=== PATIENT | female | born 1965 | race African-American/Black ===

== ENCOUNTER 2023-07-05 15:23 | Outpatient (REF) | payer OTHER, SELFPAY ==
[2023-07-05 17:18] LABS: MANUAL DIFF FLAG NO
[2023-07-05 17:19] LABS: Basophils Percent Auto 0.7 % (0-2); Eosinophils Absolute Auto 0.1 X10*3/uL (0.0-0.4); Eosinophils Percent Auto 1.6 % (0-4); Hemoglobin 12.8 g/dl (12.0-16.0); Imm Gran Abs Auto 0.01 X10*3/uL (0.00-0.03); Imm Gran Pct Auto 0.2 % (0.0-0.4); Lymphocytes Absolute Auto 2.6 X10*3/uL (1.2-4.9); Lymphocytes Percent Auto 45.6 % (20-40); Mean Corpuscular Hemoglobin 29.3 pg (27.0-33.0); Mean Corpuscular Volume 91.5 fL (80.0-98.0); Mean Platelet Volume 10.1 fL (9.4-12.3); Monocytes Absolute Auto 0.5 X10*3/uL (0.1-1.2); Monocytes Percent Auto 9.2 % (2-11); Neutrophils Absolute Auto 2.5 x10*3/uL (2.0-8.3); Neutrophils Percent Auto 42.7 % (45-73); Platelet Count 365 X10*3/uL (160-400); Red Blood Count 4.37 X10*6/uL (4.20-5.50); Red Cell Distribution Width 13.9 % (11.0-16.0); White Blood Count 5.8 X10*3/uL (4.8-10.8)
[2023-07-05 17:38] LABS: Alanine Aminotransferase 13 U/L (0-31); Albumin Level 3.9 g/dL (3.5-5.0); Alkaline Phosphatase 92 U/L (39-117); Anion Gap 11 (12-20); Aspartate Amino Transferase 15 U/L (5-31); Bilirubin Total 0.3 mg/dL (0.0-1.0); Blood Urea Nitrogen 12 mg/dL (9-16); Calcium 9.8 mg/dL (8.4-10.2); Carbon Dioxide 27 mmol/L (22-29); Chloride 105 mmol/L (96-108); Estimated Glomerular Filt Rate > 60; Glucose Random 92 mg/dL (60-115); Potassium 3.8 mmol/L (3.3-5.1); Sodium 139 mmol/L (135-145); Total Protein 7.9 g/dL (6.5-8.0)
[2023-07-05 17:46] LABS: Creatinine Urine 223.98 mg/dL; Microalbum/Creatinine Ratio Ur 12.5 ug/mg cr (<30)
[2023-07-05 17:55] LABS: TSH reflex Free T4 0.81 uIU/mL (0.32-4.0); Vitamin D 25-OH Total 34.1 ng/mL (>30)
[2023-07-06 08:25] LABS: HIV AB/AG Nonreactive (Nonreactive); HIV Num 1 0.05 S/CO (0.00-0.99); ~HepC Num1 0.11 S/CO (0.00-0.79); ~Hepatitis C Antibody Nonreactive (Nonreactive)
== END 2023-07-05 15:24 | disposition home or self-care (01) ==
LOC: HO.CHCLDS 15:23
PROVIDERS: Visit Provider Family Medicine
DX: Z11.4 Encounter for screening for human immunodeficiency virus [HIV] (principal); I10 Essential (primary) hypertension; E55.9 Vitamin D deficiency, unspecified
CPT/HCPCS: 36415; 80053; 82043; 82306; 82570; 84443; 85025; 86803; 87389

== ENCOUNTER 2023-11-01 14:36 | Outpatient (REF) | payer MEDICARE, SELFPAY ==
[2023-11-02 08:06] LABS: Syphilis Screen Reactive (Nonreactive)
[2023-11-07 12:18] LABS: RPR Quantitative Reactive 1:64 (Nonreactive); T.Pallidum Particle Agg Test Reactive (Nonreactive)
== END 2023-11-01 14:37 | disposition home or self-care (01) ==
LOC: HO.CHCLDS 14:36
PROVIDERS: Visit Provider Family Medicine
DX: R21 Rash and other nonspecific skin eruption (principal)
CPT/HCPCS: 36415; 86592; 86780

== ENCOUNTER 2024-01-17 10:35 | Outpatient (REF) | payer MEDICARE, MEDICAID, SELFPAY | END 2024-01-17 10:36 | disposition home or self-care (01) | LOC: HO.HOSX 10:35 | PROVIDERS: Visit Provider Orthopaedic Surgery | DX: Z13.89 Encounter for screening for other disorder (principal) ==

== ENCOUNTER 2024-02-10 09:08 | Outpatient (REF) | payer MEDICARE, MEDICAID, SELFPAY | END 2024-02-10 09:09 | disposition home or self-care (01) | LOC: HO.HOSX 09:08 | PROVIDERS: Visit Provider Orthopaedic Surgery | DX: Z13.89 Encounter for screening for other disorder (principal) ==

== ENCOUNTER 2024-08-10 15:07 | Outpatient (REF) | payer MEDICARE, MEDICAID, SELFPAY ==
[2024-08-12 13:38] LABS: RPR Rapid Plasma Reagin REACTIVE (NON-REACTIVE)
== END 2024-08-10 15:08 | disposition home or self-care (01) ==
LOC: HO.CHCLDS 15:07
PROVIDERS: Visit Provider Family Medicine
DX: A53.0 Latent syphilis, unspecified as early or late (principal)
CPT/HCPCS: 36415; 86592; 86593

== ENCOUNTER 2025-02-22 09:39 | Outpatient (REF) | payer MEDICARE, MEDICAID, SELFPAY ==
--- OUTSIDE RECORDS SUMMARY | 2025-02-22 09:52 | XMS_ITS | Encounter Summary ---
Author Organization [employer] Address [address] [place] [address] Care Team Providers Care Roasterman Name Role Phone Romelia Salinas MD Primary Care Provider [phone] Reason for Visit * Reason Comments Med Refill Encounter Details Date Type Department Care Team ([facility] Contact Info) Description 04/20/2023 Refill [facility] [address] [place] [address] Romelia Salinas MD [address] [place] [address] Primary hypertension; Mood disorder (CMS/HCC) Social History Tobacco Use Types Packs/Day Years Used Date Smoking Tobacco: Never Assessed Comments Unknown Sex and Gender Information Value Date Recorded Sex Assigned at Female 05/31/2022 10:40 AM EDT Legal Sex Female 10:40 AM EDT Gender Identity Female 05/31/2022 10:40 AM EDT Sexual Orientation Straight 05/31/2022 10 :40 AM EDT documented as of this encounter Plan of Treatment Upcoming Encounters Date Type Department Care Team (Late Contact Info) Description 03/01/2025 10:30 AM EDT Office Visit [facility] [address] [place] [address] Romelia Salinas MD [address] [place] [address] documented as of this encounter Visit Diagnoses Diagnosis Primary hypertension Unspecified essential hypertension Mood disorder (CMS/HCC) Unspecified episodic mood disorder documented in this encounter Care Teams Roasterman Relationship Specialty Start Date End Date Romelia Salinas MD [address] [place] [id number] PCP - General Family Medicine 02/18/22 Mirta Reilly Therapist 08/01/18 documented as of this encounter
[2025-02-26 14:03] LABS: Rapid Plasma Reagin Ab Titer 1:4
== END 2025-02-22 09:40 | disposition home or self-care (01) ==
LOC: HO.CHCLDS 09:39
PROVIDERS: Visit Provider Family Medicine
DX: A53.0 Latent syphilis, unspecified as early or late (principal)
CPT/HCPCS: 36415; 86592; 86593